=== PATIENT | female | born 1980 | race Two or more races ===

== ENCOUNTER 2016-11-18 13:41 | Emergency (ER) | payer SELFPAY ==
[~2016-11-18] VITALS: Ht 154.9 cm; Wt 76.0 kg
[2016-11-18 13:54] VITALS: BP 128/83
== END 2016-11-18 17:38 | disposition left against medical advice (07) ==
LOC: ER 13:41
DX: Z53.21 Procedure and treatment not carried out due to patient leaving prior to being seen by health care provider (principal)